=== PATIENT | female | born 1995 | race Caucasian/White ===

== ENCOUNTER 2017-03-23 23:47 | Emergency (ER) | payer OTHER ==
[2017-03-24] MEDS: DEXAMETHASONE 4 MG TAB PO (02:41)
== END 2017-03-24 02:45 | disposition home or self-care (01) ==
LOC: FTE 23:47
DX: J03.90 Acute tonsillitis, unspecified (principal)
CPT/HCPCS: 99283; Z7610

== ENCOUNTER 2017-04-01 09:06 | Emergency (ER) | payer OTHER ==
[2017-04-01] MEDS ORDERED: IBUPROFEN 800 MG TAB PO (12:30)
[2017-04-01] MEDS ORDERED: IBUPROFEN 800 MG TAB (12:30)
[2017-04-01] MEDS: IBUPROFEN 800 MG TAB PO (12:34)
== END 2017-04-01 12:39 | disposition home or self-care (01) ==
LOC: FTE 12:39
DX: S89.91XA Unspecified injury of right lower leg, initial encounter (principal); W22.8XXA Striking against or struck by other objects, initial encounter; Y92.9 Unspecified place or not applicable
CPT/HCPCS: 99283; Z7502

== ENCOUNTER 2017-07-12 16:15 | Emergency (ER) | payer OTHER | END 2017-07-12 17:24 | disposition home or self-care (01) | LOC: E/R 16:15 | DX: R21 Rash and other nonspecific skin eruption (principal) | CPT/HCPCS: 99283; Z7502 ==